=== PATIENT | male | born 1965 | race Caucasian/White ===

== ENCOUNTER → 2016-10-05 | Outpatient (REF) | payer OTHER ==
[~2016-10-05] MED LIST: ARTI99.0 OU; ARTIDRO3 OP; ASPI81TA85 PO; ATOR1TAB21 PO; LISI10TA2 PO; OMEP40CA2 PO; OXYC1TAB23 PO; REST0.05 OU; SERO200T PO; SERT-138 PO; SIMV20TA2 PO; ZOLP12.515 PO
[2016-10-05 20:13] LABS: MEAN CORPUSCULAR HEMOGLOBIN 30.3 pg (27.0-33.0); MEAN CORPUSCULAR HGB CONC 32.4 g/dl (32.0-36.5); MEAN CORPUSCULAR VOLUME 93.5 fl (80.0-96.0); RED CELL DISTRIBUTION WIDTH 13.9 % (11.5-14.5)
[2016-10-05 20:55] LABS: ALBUMIN 4.3 GM/DL (3.2-5.2); ALBUMIN/GLOBULIN RATIO 1.23 (1.00-1.93); ALKALINE PHOSPHATASE 83 U/L (45-117); ALT/SGPT 26 U/L (12-78); ANION GAP 8 MEQ/L (8-16); AST/SGOT 16 U/L (15-37); BILIRUBIN,TOTAL 0.3 MG/DL (0.2-1.0); BLOOD UREA NITROGEN 18 MG/DL (7-18); CALCIUM LEVEL 9.1 MG/DL (8.5-10.1); CARBON DIOXIDE LEVEL 26 MEQ/L (21-32); CHLORIDE LEVEL 108 MEQ/L (98-107); GLOMERULAR FILTRATION RATE > 60.0 (>56); GLUCOSE, FASTING 80 MG/DL (70-105); POTASSIUM SERUM 4.1 MEQ/L (3.5-5.1); SODIUM LEVEL 142 MEQ/L (136-145); TOTAL PROTEIN 7.8 GM/DL (6.4-8.2)
== END ==
LOC: M SFHCLERA 14:23
PROVIDERS: ATTEND Family Medicine
DX: Z01.812 Encounter for preprocedural laboratory examination (principal)

== ENCOUNTER → 2016-10-05 | Outpatient (CLI) | payer OTHER ==
--- NOTE | 2016-10-05 16:16 | REP ---
Chest two views HISTORY: Preop Comparison: None The lungs are clear. The heart is normal in size. The pulmonary vasculature is normal in appearance. The bony structure is intact. IMPRESSION: No acute disease. Signed by Hal Jacques MD 10/05/2016 04:07 P
== END ==
LOC: M LRY 14:24
PROVIDERS: ATTEND Family Medicine
DX: Z01.818 Encounter for other preprocedural examination (principal); Z13.9 Encounter for screening, unspecified

== ENCOUNTER 2016-10-08 10:26 | Day surgery (SDC) | payer OTHER ==
[~2016-10-08] VITALS: Ht 180.3 cm; Wt 108.0 kg
[~2016-10-08 10:26] MED LIST changes: -OXYC1TAB23 PO
[2016-10-08] MEDS ORDERED: MIDAZOLAM INJ 2 MG/2 ML VIAL (J2250) As Ordered ONE (10:33)
[2016-10-08] MEDS ORDERED: PROPOFOL 200 MG/20 ML VIAL As Ordered ONE (10:34)
[2016-10-08] MEDS ORDERED: dexameTHASONE 4 MG/ML 1ML VIAL (J1100) As Ordered ONE (10:34)
[2016-10-08] MEDS ORDERED: ROCURONIUM BROMIDE 50 MG/5 ML VIAL/SYRINGE As Ordered ONE (10:34)
[2016-10-08] MEDS ORDERED: fentaNYL 250 MCG/5 ML INJECTION (J3010) As Ordered ONE (10:34)
[2016-10-08] MEDS ORDERED: LIDOCAINE 2% INJ 100 MG/5 ML SDV (FOR ANES.) As Ordered ONE (10:34)
[2016-10-08] MEDS ORDERED: LR 1,000 ML IV ONE (10:45)
[2016-10-08] MEDS ORDERED: BUPIVACAINE HCL 0.25% 30 ML VIAL As Ordered ONE (11:40)
[2016-10-08] MEDS ORDERED: LIDOCAINE 1% SDV INJ 30 ML VIAL As Ordered ONE (11:40)
[2016-10-08] MEDS ORDERED: PHENYLephrine HCL 500 MCG/5 ML (100MCG/ML) SYRINGE (J2370) As Ordered ONE (12:17)
[2016-10-08] MEDS ORDERED: ePHEDrine SULFATE 25 MG/5 ML(5MG/ML) SYRINGE As Ordered ONE (12:26)
[2016-10-08] MEDS ORDERED: ONDANSETRON 4MG/2ML VIAL (J2405) As Ordered ONE (12:34)
[2016-10-08] MEDS ORDERED: KETOROLAC 60 MG/2 ML VIAL (J1885) As Ordered ONE (12:52)
[2016-10-08] MEDS ORDERED: HYDROmorphone HCL 2 MG/ML 1ML VIAL (J1170) As Ordered ONE (12:58)
[2016-10-08] MEDS ORDERED: GLYCOPYRROLATE INJ 0.2 MG/ML 2 ML VIAL As Ordered ONE (13:02)
[2016-10-08] MEDS ORDERED: OXYC1TAB23 PO (13:06)
--- NOTE | 2016-10-08 13:17 | ROOPDOC ---
[facility] Report Of Operation Report of Operation DATE OF PROCEDURE: 10/08/16 PREPROCEDURE DIAGNOSES: Recurrent epigastric hernia. POSTPROCEDURE DIAGNOSES: Recurrent epigastric hernia PROCEDURE: Laparoscopic epigastric hernia repair SURGEON: Yevgeniy MD CELLULAR EQUIPMENT REPAIRER: Piedad Ahumada NP ANESTHESIA: General anesthesia ESTIMATED BLOOD LOSS: Approximately 10 mL. COMPLICATIONS: None REMARKS: Multiple small defects within about a 5 cm area at the peptic epigastric area containing both preperitoneal fat and initially the epiploic appendage of the transverse colon PROCEDURE NOTE: 51-year-old gentleman with recurrent bulging at the epigastric area complaining of pain at the area with movement, bending. DESCRIPTION OF PROCEDURE: . LAPAROSCOPIC umbilical hernia repair He was given a dose of Ancef 2 g IV preoperatively for antibiotic prophylaxis 1 hour prior to incision. Patient was brought to the operating room, placed supine on the table. Sequential compression device placed for DVT prophylaxis. General endotracheal anesthesia started. The abdomen prepped and draped in usual sterile fashion. After a surgical timeout, we began our surgery Entry into the abdomen done via a left upper quadrant subcostal incision. A Veress needle inserted into the abdomen. Proper placement confirmed with saline drop technique. CO2 insufflation done to a pressure of 15 mmHg. Using the same incision 5 mm Visiport was placed under direct vision of the laparoscope. Diagnostic laparoscopy, a piece of the epiploic appendage from the transverse colon is seen incarcerated into the epigastric hernia. Wide diastases of the upper midline muscles with thinning of the abdominal wall. Previously placed mesh covering the umbilicus intact. The recurrent hernia defect is about 6-7 cm above the edge of the previously placed mesh. After reducing the incarcerated epiploic appendage, some more preperitoneal fat tissue was reduced back into the abdomen. The previously placed on 902 pro mesh is seen covering the defect but displaced from the fascia. A second working port was placed over the left lower quadrant area. The contents of the hernia dissected free. The incarcerated fat and epiploic appendage from the transverse colon was reduced back into the abdomen. The surrounding tissues were freed from the hernia edge, including the falciform ligament. There is 3 separate small hernia defects within about a 5 cm area at the epigastric area in the typical [place] cheese configuration. I chose a 12 cm Parietex Composite round mesh which should adequately cover the area down to the upper portion of the previously placed umbilical mesh. Transabdominal sutures placed at this 3, 6 9 and 12 oclock position at the edge of the mesh. The rough side of the mesh was marked for identification inside the abdomen. This is rolled tightly and placed into the abdomen. This was positioned to center on the hernia defect. Transabdominal suture passer used to retrieve the sutures to position the mesh. Once adequate overlap of the mesh to the hernia defect was ensured. 2 rows of secure strap Vicryl tacks then placed to secure the mesh to the abdominal wall. The outer tacks were at the edge of the mesh and the inner tacks were chest outside of the hernia defect. We inspected the abdomen for hemostasis. Surveyed the abdomen for any injury. Once assured, the abdomen was deflated and all ports removed. Skin incisions closed with 4-0 Monocryl subcuticular fashion. Dermabond used for dressing. Patients promptly awake and extubated and brought to the recovery room in stable condition. All counts of sponges and instruments verified to be correct. YEVGENIY VALADEZ MD Oct 08, 2016 13:17
[2016-10-08] MEDS ORDERED: LR 1,000 ML IV SCH (13:30)
[2016-10-08] MEDS ORDERED: ONDANSETRON 4MG/2ML VIAL (J2405) IV PRN ×2 (13:30)
[2016-10-08] MEDS ORDERED: PERCOCET 5MG/325MG TAB PO PRN ×3 (13:30)
[2016-10-08] MEDS ORDERED: NORCO, ANEXSIA 5/325MG TABLET (HYDROcodone/ACETAMINOPHEN) PO PRN ×2 (13:30)
[2016-10-08] MEDS ORDERED: fentaNYL 100 MCG/2 ML INJECTION (J3010) IV PRN (13:30)
[2016-10-08 15:05] VITALS: BP 113/67
[2016-10-08] MEDS ORDERED: KETOROLAC 30 MG/ML VIAL (J1885) IV PRN (19:00)
== END 2016-10-08 15:30 | disposition home or self-care (01) ==
LOC: M SDC 10:26
PROVIDERS: ATTEND Surgery
DX: K43.6 Other and unspecified ventral hernia with obstruction, without gangrene (principal); I10 Essential (primary) hypertension; K21.9 Gastro-esophageal reflux disease without esophagitis; F43.10 Post-traumatic stress disorder, unspecified; F41.9 Anxiety disorder, unspecified; F32.9 Major depressive disorder, single episode, unspecified; E78.4 Other hyperlipidemia; Z79.899 Other long term (current) drug therapy
CPT/HCPCS: 49653; C1781

== ENCOUNTER 2017-08-05 15:43 | Emergency (ER) | payer OTHER | END 2017-08-05 16:44 | disposition home or self-care (01) | LOC: M ED 15:43 | DX: R58 Hemorrhage, not elsewhere classified (principal); I83.899 Varicose veins of unspecified lower extremity with other complications; F41.9 Anxiety disorder, unspecified; Z79.82 Long term (current) use of aspirin; Z79.899 Other long term (current) drug therapy; Z91.030 Bee allergy status | CPT/HCPCS: 99284 ==

== ENCOUNTER → 2017-08-10 | Outpatient (REF) | payer OTHER ==
[2017-08-10 17:17] LABS: HEMATOCRIT 38.2 % (42.0-52.0); HEMOGLOBIN 12.2 g/dl (13.5-17.5); MEAN CORPUSCULAR HEMOGLOBIN 29.3 pg (27.0-33.0); MEAN CORPUSCULAR HGB CONC 31.9 g/dl (32.0-36.5); MEAN CORPUSCULAR VOLUME 91.6 fl (80.0-96.0); PLATELET COUNT, AUTOMATED 362 10^3/uL (150-450); RED BLOOD COUNT 4.17 10^6/uL (4.30-6.10); WHITE BLOOD COUNT 6.2 10^3/uL (4.0-10.0)
[2017-08-10 18:01] LABS: ALBUMIN/GLOBULIN RATIO 1.14 (1.00-1.93); ALKALINE PHOSPHATASE 73 U/L (45-117); ALT/SGPT 29 U/L (12-78); ANION GAP 9 MEQ/L (8-16); AST/SGOT 19 U/L (7-37); BILIRUBIN,TOTAL 0.4 MG/DL (0.2-1.0); BLOOD UREA NITROGEN 13 MG/DL (7-18); CALCIUM LEVEL 9.4 MG/DL (8.5-10.1); CARBON DIOXIDE LEVEL 26 MEQ/L (21-32); CHLORIDE LEVEL 107 MEQ/L (98-107); CHOLESTEROL LEVEL 191 MG/DL (<200); CHOLESTEROL RISK RATIO 3.673 (<5); CREATININE FOR GFR 0.93 MG/DL (0.70-1.30); GLOMERULAR FILTRATION RATE > 60.0 (>56); GLUCOSE, FASTING 89 MG/DL (70-100); HDL CHOLESTEROL 52 MG/DL (>40); NON-HDL-C 139 MG/DL; POTASSIUM SERUM 3.8 MEQ/L (3.5-5.1); SODIUM LEVEL 142 MEQ/L (136-145); TOTAL PROTEIN 7.5 GM/DL (6.4-8.2); TRIGLYCERIDES LEVEL 170 MG/DL (<150)
== END ==
LOC: M SFHCLERA 12:31
DX: I10 Essential (primary) hypertension (principal); E78.2 Mixed hyperlipidemia

== ENCOUNTER → 2017-09-30 | Outpatient (REF) | payer OTHER | LOC: M SFHCSACK 14:36 | DX: D64.9 Anemia, unspecified (principal) ==

== ENCOUNTER → 2017-10-07 | Outpatient (REF) | payer OTHER ==
[2017-10-07 11:31] LABS: BASO % 0.4 % (0.0-1.0); EOS # 0.3 10^3/uL (0.0-0.50); EOS % 3.5 % (0.0-3.0); HEMATOCRIT 38.1 % (42.0-52.0); HEMOGLOBIN 12.3 g/dl (13.5-17.5); IMMATURE GRANULOCYTE % 0.2 % (0-3.0); LYMPH # 1.6 10^3/uL (1.5-4.5); LYMPH % 19.8 % (24.0-44.0); MEAN CORPUSCULAR HEMOGLOBIN 28.9 pg (27.0-33.0); MEAN CORPUSCULAR HGB CONC 32.3 g/dl (32.0-36.5); MEAN CORPUSCULAR VOLUME 89.4 fl (80.0-96.0); MONO # 0.6 10^3/uL (0.0-0.8); NEUTROPHILS # 5.6 10^3/uL (1.8-7.7); NEUTROPHILS % 69.1 % (36.0-66.0); PLATELET COUNT, AUTOMATED 341 10^3/uL (150-450); RED BLOOD COUNT 4.26 10^6/uL (4.30-6.10); RED CELL DISTRIBUTION WIDTH 14.6 % (11.5-14.5)
[2017-10-07 12:13] LABS: TOTAL 25(OH) VITAMIN D 10.7 NG/ML (30.0-100.0)
[2017-10-07 12:27] LABS: ALBUMIN/GLOBULIN RATIO 1.14 (1.00-1.93); ALKALINE PHOSPHATASE 75 U/L (45-117); ALT/SGPT 33 U/L (12-78); ANION GAP 10 MEQ/L (8-16); AST/SGOT 27 U/L (7-37); BILIRUBIN,TOTAL 0.4 MG/DL (0.2-1.0); BLOOD UREA NITROGEN 24 MG/DL (7-18); CALCIUM LEVEL 9.9 MG/DL (8.5-10.1); CARBON DIOXIDE LEVEL 28 MEQ/L (21-32); CHLORIDE LEVEL 104 MEQ/L (98-107); CHOLESTEROL LEVEL 171 MG/DL (<200); CHOLESTEROL RISK RATIO 3.638 (<5); FERRITIN 27 NG/ML (26-388); FREE T4 0.84 NG/DL (0.76-1.46); GLOMERULAR FILTRATION RATE > 60.0 (>56); GLUCOSE, FASTING 109 MG/DL (70-100); HDL CHOLESTEROL 47 MG/DL (>40); IRON (FE) 52 UG/DL (65-175); LDL CHOLESTEROL 74.2 MG/DL (<100); NON-HDL-C 124 MG/DL; PERCENT SATURATION 10.9 % (19.7-50.0); SODIUM LEVEL 142 MEQ/L (136-145); TOTAL IRON BINDING CAPACITY 476 UG/DL (250-450); TOTAL PROTEIN 7.5 GM/DL (6.4-8.2); TRIGLYCERIDES LEVEL 249 MG/DL (<150)
== END ==
LOC: M SFHCSACK 08:57
DX: D64.9 Anemia, unspecified (principal); E78.2 Mixed hyperlipidemia; Z83.49 Family history of other endocrine, nutritional and metabolic diseases; F41.8 Other specified anxiety disorders

== ENCOUNTER → 2017-10-19 | Outpatient (CLI) | payer OTHER | LOC: M RAD 12:17 | DX: I87.393 Chronic venous hypertension (idiopathic) with other complications of bilateral lower extremity (principal) | CPT/HCPCS: 93970 ==

== ENCOUNTER → 2018-01-02 | Outpatient (REF) | payer OTHER ==
[2018-01-02 14:14] LABS: BASO # 0.1 10^3/uL (0.0-0.2); BASO % 0.9 % (0.0-1.0); EOS # 0.3 10^3/uL (0.0-0.50); HEMATOCRIT 39.8 % (42.0-52.0); HEMOGLOBIN 12.5 g/dl (13.5-17.5); IMMATURE GRANULOCYTE % 0.3 % (0-3.0); LYMPH # 1.5 10^3/uL (1.5-4.5); LYMPH % 20.1 % (24.0-44.0); MEAN CORPUSCULAR HEMOGLOBIN 27.4 pg (27.0-33.0); MEAN CORPUSCULAR HGB CONC 31.4 g/dl (32.0-36.5); MEAN CORPUSCULAR VOLUME 87.3 fl (80.0-96.0); MONO # 0.4 10^3/uL (0.0-0.8); MONO % 4.7 % (0.0-5.0); NEUTROPHILS # 5.2 10^3/uL (1.8-7.7); PLATELET COUNT, AUTOMATED 422 10^3/uL (150-450); RED BLOOD COUNT 4.56 10^6/uL (4.30-6.10); RED CELL DISTRIBUTION WIDTH 14.8 % (11.5-14.5); WHITE BLOOD COUNT 7.5 10^3/uL (4.0-10.0)
[2018-01-02 14:42] LABS: ALBUMIN 4.6 GM/DL (3.2-5.2); ALBUMIN/GLOBULIN RATIO 1.28 (1.00-1.93); ALKALINE PHOSPHATASE 117 U/L (45-117); ALT/SGPT 36 U/L (12-78); ANION GAP 9 MEQ/L (8-16); AST/SGOT 36 U/L (7-37); BILIRUBIN,TOTAL 0.5 MG/DL (0.2-1.0); BLOOD UREA NITROGEN 15 MG/DL (7-18); CALCIUM LEVEL 9.7 MG/DL (8.5-10.1); CARBON DIOXIDE LEVEL 26 MEQ/L (21-32); CHLORIDE LEVEL 102 MEQ/L (98-107); CHOLESTEROL LEVEL 190 MG/DL (<200); CHOLESTEROL RISK RATIO 2.676 (<5); CREATININE FOR GFR 1.37 MG/DL (0.70-1.30); FERRITIN 22 NG/ML (26-388); GLOMERULAR FILTRATION RATE 57.9 (>56); GLUCOSE, FASTING 103 MG/DL (70-100); HDL CHOLESTEROL 71 MG/DL (>40); IRON (FE) 89 UG/DL (65-175); LDL CHOLESTEROL 97 MG/DL (<100); NON-HDL-C 119 MG/DL; PERCENT SATURATION 17.8 % (19.7-50.0); POTASSIUM SERUM 4.6 MEQ/L (3.5-5.1); SODIUM LEVEL 137 MEQ/L (136-145); TOTAL IRON BINDING CAPACITY 500 UG/DL (250-450); TOTAL PROTEIN 8.2 GM/DL (6.4-8.2); TRIGLYCERIDES LEVEL 108 MG/DL (<150)
[2018-01-02 17:56] LABS: ESTIMATED AVERAGE GLUCOSE 111 MG/DL (60-110); HEMOGLOBIN A1c 5.5 %
== END ==
LOC: M SFHCSACK 11:11
DX: E78.2 Mixed hyperlipidemia (principal); D64.9 Anemia, unspecified; R73.09 Other abnormal glucose

== ENCOUNTER → 2018-05-10 | Outpatient (REF) | payer OTHER ==
[~2018-05-10] MED LIST changes: +ARTI1DRO OP; -ARTIDRO3 OP; +OXYC1TAB23 PO
[2018-05-10 14:28] LABS: BASO # 0.1 10^3/uL (0.0-0.2); BASO % 0.8 % (0.0-1.0); EOS # 0.4 10^3/uL (0.0-0.50); EOS % 5.5 % (0.0-3.0); HEMATOCRIT 41.5 % (42.0-52.0); HEMOGLOBIN 13.2 g/dl (13.5-17.5); LYMPH # 1.2 10^3/uL (1.5-4.5); LYMPH % 16.5 % (24.0-44.0); MEAN CORPUSCULAR HEMOGLOBIN 26.9 pg (27.0-33.0); MEAN CORPUSCULAR HGB CONC 31.8 g/dl (32.0-36.5); MEAN CORPUSCULAR VOLUME 84.7 fl (80.0-96.0); MONO # 0.6 10^3/uL (0.0-0.8); MONO % 8.5 % (0.0-5.0); NEUTROPHILS % 68.4 % (36.0-66.0); PLATELET COUNT, AUTOMATED 442 10^3/uL (150-450); WHITE BLOOD COUNT 7.3 10^3/uL (4.0-10.0)
[2018-05-10 14:54] LABS: HEMOGLOBIN A1c 5.9 %
[2018-05-10 15:01] LABS: ALBUMIN 4.5 GM/DL (3.2-5.2); ALT/SGPT 29 U/L (12-78); BILIRUBIN,TOTAL 0.7 MG/DL (0.2-1.0); BLOOD UREA NITROGEN 15 MG/DL (7-18); CALCIUM LEVEL 9.5 MG/DL (8.5-10.1); CARBON DIOXIDE LEVEL 27 MEQ/L (21-32); CHLORIDE LEVEL 105 MEQ/L (98-107); CREATININE FOR GFR 1.14 MG/DL (0.70-1.30); GLOMERULAR FILTRATION RATE > 60.0 (>56); GLUCOSE, FASTING 102 MG/DL (70-100); POTASSIUM SERUM 4.5 MEQ/L (3.5-5.1); SODIUM LEVEL 140 MEQ/L (136-145); TOTAL PROTEIN 8.2 GM/DL (6.4-8.2)
[2018-05-10 15:04] LABS: TOTAL 25(OH) VITAMIN D 59.5 NG/ML (30.0-100.0)
== END ==
LOC: M SFHCSACK 09:18
PROVIDERS: ATTEND Physician Assistant
DX: D64.9 Anemia, unspecified (principal); E78.2 Mixed hyperlipidemia; R73.01 Impaired fasting glucose; E55.9 Vitamin D deficiency, unspecified

== ENCOUNTER → 2018-05-17 | Outpatient (CLI) | payer OTHER ==
--- NOTE | 2018-05-18 01:43 | REP ---
Clinical: Chronic pain. Technique: AP, lateral, bilateral oblique and sunrise views right knee . Findings: Mild/moderate tricompartmental degenerative changes include subchondral sclerosis, joint space narrowing, and subtle early osteophyte formation primarily involving the patellofemoral and medial joint space compartments. No acute fracture or dislocation. No obvious effusion. Impression: Mild/moderate tricompartmental osteoarthritic changes. Electronically Signed by Sonny Black MD 05/18/2018 01:35 A
== END ==
LOC: M WUC 15:14
PROVIDERS: ATTEND Physician Assistant
DX: M71.21 Synovial cyst of popliteal space [Baker], right knee (principal); M17.11 Unilateral primary osteoarthritis, right knee

== ENCOUNTER → 2018-12-01 | Outpatient (CLI) | payer OTHER ==
[~2018-12-01] MED LIST changes: -ARTI99.0 OU; +ARTIDRO2 OU; +LISI10TA15 PO; -LISI10TA2 PO
[2018-12-01 16:53] LABS: ALBUMIN 4.2 GM/DL (3.2-5.2); ALT/SGPT 38 U/L (12-78); BILIRUBIN,TOTAL 0.4 MG/DL (0.2-1.0); BLOOD UREA NITROGEN 19 MG/DL (7-18); CALCIUM LEVEL 9.8 MG/DL (8.5-10.1); CARBON DIOXIDE LEVEL 30 MEQ/L (21-32); CHLORIDE LEVEL 103 MEQ/L (98-107); CHOLESTEROL LEVEL 197 MG/DL (<200); CHOLESTEROL RISK RATIO 3.396 (<5); CREATININE FOR GFR 1.17 MG/DL (0.70-1.30); FERRITIN 14 NG/ML (26-388); GLOMERULAR FILTRATION RATE > 60.0 (>56); GLUCOSE, FASTING 88 MG/DL (70-100); HDL CHOLESTEROL 58 MG/DL (>40); IRON (FE) 116 UG/DL (65-175); LDL CHOLESTEROL 103 MG/DL (<100); NON-HDL-C 139 MG/DL; PERCENT SATURATION 23.3 % (19.7-50.0); POTASSIUM SERUM 3.7 MEQ/L (3.5-5.1); SODIUM LEVEL 140 MEQ/L (136-145); TOTAL IRON BINDING CAPACITY 498 UG/DL (250-450); TOTAL PROTEIN 7.6 GM/DL (6.4-8.2); TRIGLYCERIDES LEVEL 179 MG/DL (<150)
[2018-12-01 16:56] LABS: BASO # 0.1 10^3/uL (0.0-0.2); BASO % 0.7 % (0.0-1.0); EOS # 0.2 10^3/uL (0.0-0.5); EOS % 2.9 % (0.0-3.0); HEMATOCRIT 40.5 % (42.0-52.0); HEMOGLOBIN 12.9 g/dl (13.5-17.5); LYMPH # 2.1 10^3/uL (1.5-5.0); LYMPH % 29.8 % (24.0-44.0); MEAN CORPUSCULAR HEMOGLOBIN 27.2 pg (27.0-33.0); MEAN CORPUSCULAR HGB CONC 31.9 g/dl (32.0-36.5); MEAN CORPUSCULAR VOLUME 85.4 fl (80.0-96.0); MONO # 0.5 10^3/uL (0.0-0.8); MONO % 6.5 % (0.0-5.0); NEUTROPHILS # 4.1 10^3/uL (1.5-8.5); NEUTROPHILS % 59.8 % (36.0-66.0); PLATELET COUNT, AUTOMATED 393 10^3/uL (150-450); RED BLOOD COUNT 4.74 10^6/uL (4.30-6.10); WHITE BLOOD COUNT 6.9 10^3/uL (4.0-10.0)
[2018-12-01 17:01] LABS: TOTAL 25(OH) VITAMIN D 70.5 NG/ML (30.0-100.0)
== END ==
LOC: M WUC 13:55
PROVIDERS: ATTEND Physician Assistant
DX: R73.01 Impaired fasting glucose (principal); D64.9 Anemia, unspecified; E78.2 Mixed hyperlipidemia

== ENCOUNTER → 2019-12-05 | Outpatient (CLI) | payer OTHER ==
[~2019-12-05] MED LIST changes: -ARTIDRO2 OU; -ASPI81TA85 PO; +ASPI81TA86 PO; -OMEP40CA2 PO; +OMEP40CA97 PO; +POLYOPD OU; -SIMV20TA2 PO; +SIMV20TA22 PO; -ZOLP12.515 PO; +ZOLP12.518 PO
[2019-12-05 17:16] LABS: BLOOD UREA NITROGEN 11 MG/DL (7-18); CALCIUM LEVEL 9.1 MG/DL (8.5-10.1); CARBON DIOXIDE LEVEL 27 MEQ/L (21-32); CHLORIDE LEVEL 105 MEQ/L (98-107); CREATININE FOR GFR 0.96 MG/DL (0.70-1.30); GLOMERULAR FILTRATION RATE > 60.0 (>56); GLUCOSE, FASTING 93 MG/DL (70-100); POTASSIUM SERUM 3.6 MEQ/L (3.5-5.1); SODIUM LEVEL 139 MEQ/L (136-145)
== END ==
LOC: M WUC 13:39
PROVIDERS: ATTEND Physician Assistant Surgical
DX: Z01.812 Encounter for preprocedural laboratory examination (principal); M25.562 Pain in left knee

== ENCOUNTER → 2019-12-05 | Outpatient (CLI) | payer OTHER ==
[2019-12-05 16:51] LABS: BASO % 0.8 % (0.0-1.0); EOS # 0.2 10^3/uL (0.0-0.5); EOS % 4.1 % (0.0-3.0); HEMATOCRIT 42.3 % (42.0-52.0); HEMOGLOBIN 13.3 g/dl (13.5-17.5); LYMPH # 1.7 10^3/uL (1.5-5.0); MEAN CORPUSCULAR HEMOGLOBIN 27.5 pg (27.0-33.0); MEAN CORPUSCULAR HGB CONC 31.4 g/dl (32.0-36.5); MEAN CORPUSCULAR VOLUME 87.4 fl (80.0-96.0); MONO # 0.4 10^3/uL (0.0-0.8); MONO % 6.8 % (0.0-5.0); NEUTROPHILS # 2.9 10^3/uL (1.5-8.5); NEUTROPHILS % 55.1 % (36.0-66.0); PLATELET COUNT, AUTOMATED 432 10^3/uL (150-450); RED BLOOD COUNT 4.84 10^6/uL (4.30-6.10); WHITE BLOOD COUNT 5.2 10^3/uL (4.0-10.0)
[2019-12-05 17:27] LABS: ALBUMIN 3.9 GM/DL (3.2-5.2); ALT/SGPT 23 U/L (12-78); BILIRUBIN,TOTAL 0.4 MG/DL (0.2-1.0); BLOOD UREA NITROGEN 10 MG/DL (7-18); CARBON DIOXIDE LEVEL 27 MEQ/L (21-32); CHLORIDE LEVEL 105 MEQ/L (98-107); CHOLESTEROL LEVEL 179 MG/DL (<200); CHOLESTEROL RISK RATIO 3.442 (<5); CREATININE FOR GFR 0.97 MG/DL (0.70-1.30); FERRITIN 12 NG/ML (26-388); FREE T4 1.07 NG/DL (0.76-1.46); GLOMERULAR FILTRATION RATE > 60.0 (>56); GLUCOSE, FASTING 93 MG/DL (70-100); HDL CHOLESTEROL 52 MG/DL (>40); IRON (FE) 76 UG/DL (65-175); LDL CHOLESTEROL 104 MG/DL (<100); NON-HDL-C 127 MG/DL; PERCENT SATURATION 16.3 % (19.7-50.0); POTASSIUM SERUM 3.6 MEQ/L (3.5-5.1); SODIUM LEVEL 138 MEQ/L (136-145); TOTAL IRON BINDING CAPACITY 465 UG/DL (250-450); TOTAL PROTEIN 7.4 GM/DL (6.4-8.2); TRIGLYCERIDES LEVEL 113 MG/DL (<150)
== END ==
LOC: M WUC 13:35
PROVIDERS: ATTEND Physician Assistant
DX: D64.9 Anemia, unspecified (principal); E78.2 Mixed hyperlipidemia; I10 Essential (primary) hypertension; Z13.29 Encounter for screening for other suspected endocrine disorder

== ENCOUNTER → 2019-12-08 | Outpatient (CLI) | payer OTHER | LOC: M LABSMTC 09:01 | PROVIDERS: ATTEND Orthopaedic Surgery | DX: Z01.812 Encounter for preprocedural laboratory examination (principal); Z20.828 Contact with and (suspected) exposure to other viral communicable diseases ==

== ENCOUNTER → 2020-07-04 | Outpatient (CLI) | payer OTHER ==
[~2020-07-04] MED LIST changes: +ISOVUE-300 61% 50ML VIAL As Ordered ONE
--- NOTE | 2020-07-04 10:18 | REP ---
INDICATION: EFFUSION LT KNEE, R/O INTERNAL DERANGEMENT. COMPARISON: None. TECHNIQUE: Axial CT images left knee performed following arthrogram procedure. Sagittal and coronal reconstruction images are performed. FINDINGS: There is extensive complex tear of the anterior and posterior horns of the medial meniscus. The lateral meniscus appears intact. The cruciate ligaments appear intact. There is no full-thickness tear of the collateral ligaments. There is no evidence of full-thickness tear of the extensor mechanism. There is no full-thickness tear of the medial or lateral patellar retinaculum. There is moderate to severe chondromalacia along the weight-bearing surface of the medial femoral condyle and tibial plateau. There is associated subchondral sclerosis and mild spurring. There is relatively mild chondromalacia along the lateral femoral condyle. The osseous structures are intact. There is a Conn's cyst which fills with contrast, having a craniocaudal length of approximately 6 cm and a diameter transversely approximately 2.4 cm. IMPRESSION: Extensive complex tear anterior and posterior horns medial meniscus. No other evidence of significant internal derangement. 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 Conn's cyst. <Electronically signed by Abhilash Yanes > 07/04/20 [id number]
--- NOTE | 2020-07-04 16:18 | REP ---
INDICATION: EFFUSION LT KNEE, R/O INTERNAL DERANGEMENT. COMPARISON: None TECHNIQUE: The procedure was performed by REYNA Marie, under the direct supervision of Dr. Yanes. The benefits and risks of the procedure were explained to the patient, and an informed consent was obtained. Directly prior to the start of the procedure, a formal time-out was completed in the procedure room. The left femoral tibial joint space was localized using fluoroscopic guidance. The skin was prepped and draped in a sterile fashion. Approximately 5 mL of 1% Lidocaine 10 mg/ml was used as a local anesthetic. Using fluoroscopic guidance, a #22 gauge spinal needle was inserted and advanced into the left femoral tibial joint space. Approximately 12 mL of Isovue 300 was injected to verify placement, and postprocedural imaging. The needle was removed and hemostasis was achieved. FINDINGS: The patient tolerated the procedure well and there were no immediate complications. IMPRESSION: 1. Fluoroscopic guided left knee CT arthrogram injection. 0.2 minutes of fluoroscopy time was utilized for this procedure. Some fluoroscopic images are performed with last image hold technology. These images require no additional radiation. <Electronically signed by Akosua Diaz > 07/04/20 [id number] <Electronically signed by Abhilash Yanes > 07/04/20 [id number]
== END ==
LOC: M RADPRO 08:42
PROVIDERS: ATTEND Physician Assistant
DX: S83.242A Other tear of medial meniscus, current injury, left knee, initial encounter (principal); M22.42 Chondromalacia patellae, left knee; M25.462 Effusion, left knee
CPT/HCPCS: 27369; 73701; 77002; Q9967

== ENCOUNTER → 2020-09-05 | Outpatient (CLI) | payer OTHER ==
[~2020-09-05] MED LIST changes: -ISOVUE-300 61% 50ML VIAL As Ordered ONE; -LISI10TA15 PO; +LISI10TA24 PO; +OMEP40CA4 PO; -OMEP40CA97 PO
[2020-09-05 17:25] LABS: BASO # 0.1 10^3/uL (0.0-0.2); BASO % 0.6 % (0.0-1.0); EOS # 0.2 10^3/uL (0.0-0.5); EOS % 2.4 % (0.0-3.0); HEMOGLOBIN 12.8 g/dl (13.5-17.5); LYMPH % 24.7 % (24.0-44.0); MEAN CORPUSCULAR HEMOGLOBIN 28.8 pg (27.0-33.0); MEAN CORPUSCULAR VOLUME 90.1 fl (80.0-96.0); MONO # 0.5 10^3/uL (0.0-0.8); MONO % 5.4 % (2.0-8.0); NEUTROPHILS # 5.5 10^3/uL (1.5-8.5); NEUTROPHILS % 66.3 % (36.0-66.0); PLATELET COUNT, AUTOMATED 431 10^3/uL (150-450); RED BLOOD COUNT 4.44 10^6/uL (4.30-6.10); WHITE BLOOD COUNT 8.3 10^3/uL (4.0-10.0)
[2020-09-05 18:06] LABS: ERYTHROCYTE SEDIMENTATION RATE 14 mm/hr (0-20)
== END ==
LOC: M PLALAB 16:01
PROVIDERS: ATTEND Physician Assistant
DX: Z47.89 Encounter for other orthopedic aftercare (principal); Z79.82 Long term (current) use of aspirin; Z79.899 Other long term (current) drug therapy

== ENCOUNTER → 2021-05-01 | Outpatient (CLI) | payer OTHER ==
[2021-05-01 15:38] LABS: HEMATOCRIT 38.5 % (42.0-52.0); HEMOGLOBIN 12.3 g/dl (13.5-17.5); MEAN CORPUSCULAR HEMOGLOBIN 28.9 pg (27.0-33.0); MEAN CORPUSCULAR HGB CONC 31.9 g/dl (32.0-36.5); MEAN CORPUSCULAR VOLUME 90.6 fl (80.0-96.0); PLATELET COUNT, AUTOMATED 375 10^3/uL (150-450); RED BLOOD COUNT 4.25 10^6/uL (4.30-6.10); WHITE BLOOD COUNT 5.8 10^3/uL (4.0-10.0)
[2021-05-01 16:16] LABS: MALB URINE SIEMENS 13.8 MG/L; MAU/CREAT RATIO 9.3 MCG/MG (0.0-30.0)
[2021-05-01 16:18] LABS: BLOOD UREA NITROGEN 27 MG/DL (7-18); GLUCOSE, FASTING 99 MG/DL (70-100)
[2021-05-01 16:19] LABS: ALBUMIN 4.3 GM/DL (3.2-5.2); ALT/SGPT 28 U/L (12-78); BILIRUBIN,TOTAL 0.5 MG/DL (0.2-1.0); CALCIUM LEVEL 10.2 MG/DL (8.5-10.1); CARBON DIOXIDE LEVEL 25 MEQ/L (21-32); CHLORIDE LEVEL 111 MEQ/L (98-107); CHOLESTEROL LEVEL 183 MG/DL (<200); CHOLESTEROL RISK RATIO 2.577 (<5); FREE T4 1.01 NG/DL (0.76-1.46); GLOMERULAR FILTRATION RATE > 60.0 (>56); HDL CHOLESTEROL 71 MG/DL (>40); LDL CHOLESTEROL 97 MG/DL (<100); NON-HDL-C 112 MG/DL; POTASSIUM SERUM 4.4 MEQ/L (3.5-5.1); SODIUM LEVEL 142 MEQ/L (136-145); TOTAL PROTEIN 7.6 GM/DL (6.4-8.2); TRIGLYCERIDES LEVEL 77 MG/DL (<150)
[2021-05-01 17:20] LABS: HEMOGLOBIN A1c 5.4 %
== END ==
LOC: M PLALAB 12:50
PROVIDERS: ATTEND Physician Assistant
DX: G47.00 Insomnia, unspecified (principal); K21.9 Gastro-esophageal reflux disease without esophagitis; E78.2 Mixed hyperlipidemia; I10 Essential (primary) hypertension; Z13.1 Encounter for screening for diabetes mellitus

== ENCOUNTER → 2021-06-10 | Outpatient (CLI) | payer OTHER | LOC: M PLAIMG 11:33 | PROVIDERS: ATTEND Physician Assistant | DX: M75.32 Calcific tendinitis of left shoulder (principal); M54.12 Radiculopathy, cervical region; E55.9 Vitamin D deficiency, unspecified ==

== ENCOUNTER → 2021-06-20 | Outpatient (CLI) | payer OTHER ==
[~2021-06-20] MED LIST changes: +ACET160L16 PO; +ACET160T22 PO; +ASPI81CH33 PO; +D-10TAB3 PO; +MIRT1TAB16 PO; +ZOLO100T PO
== END ==
LOC: M LABSMTC 10:47
PROVIDERS: ATTEND Anesthesiology
DX: Z01.812 Encounter for preprocedural laboratory examination (principal); Z20.822 Contact with and (suspected) exposure to COVID-19

== ENCOUNTER → 2021-10-20 | Outpatient (CLI) | payer OTHER | LOC: M SOG 09:29 | PROVIDERS: ATTEND Physician Assistant | DX: G56.03 Carpal tunnel syndrome, bilateral upper limbs (principal) ==

== ENCOUNTER → 2021-12-24 | Outpatient (CLI) | payer OTHER | LOC: M SOG 08:05 | PROVIDERS: ATTEND Orthopaedic Surgery Adult Reconstructive Orthopaedic Surgery | DX: M17.0 Bilateral primary osteoarthritis of knee (principal) ==

== ENCOUNTER → 2022-04-29 | Outpatient (REF) | payer OTHER ==
[2022-04-29 13:50] LABS: BASO % 0.7 % (0.0-1.0); EOS # 0.1 10^3/uL (0.0-0.5); EOS % 1.7 % (0.0-3.0); HEMATOCRIT 39.8 % (42.0-52.0); HEMOGLOBIN 12.8 g/dl (13.5-17.5); LYMPH # 1.4 10^3/uL (1.5-5.0); LYMPH % 23.5 % (24.0-44.0); MEAN CORPUSCULAR HEMOGLOBIN 30.9 pg (27.0-33.0); MEAN CORPUSCULAR HGB CONC 32.2 g/dl (32.0-36.5); MEAN CORPUSCULAR VOLUME 96.1 fl (80.0-96.0); MONO # 0.4 10^3/uL (0.0-0.8); MONO % 7.1 % (2.0-8.0); NEUTROPHILS # 3.8 10^3/uL (1.5-8.5); NEUTROPHILS % 66.5 % (36.0-66.0); PLATELET COUNT, AUTOMATED 354 10^3/uL (150-450); RED BLOOD COUNT 4.14 10^6/uL (4.30-6.10); WHITE BLOOD COUNT 5.8 10^3/uL (4.0-10.0)
[2022-04-29 14:13] LABS: ALBUMIN 4.4 G/DL (3.2-5.2); ALKALINE PHOSPHATASE 70 U/L (46-116); ALT/SGPT 21 U/L (7.0-40); AST/SGOT 20 U/L (<34); BILIRUBIN,TOTAL 0.5 MG/DL (0.3-1.2); BLOOD UREA NITROGEN 25 MG/DL (9-23); CALCIUM LEVEL 10.2 MG/DL (8.5-10.1); CARBON DIOXIDE LEVEL 28 MMOL/L (20-31); CHLORIDE LEVEL 103 MMOL/L (98-107); CHOLESTEROL LEVEL 185 MG/DL (<200); CHOLESTEROL RISK RATIO 2.95 (<5); CREATININE FOR GFR 0.83 MG/DL (0.70-1.30); GLOMERULAR FILTRATION RATE > 60.0 (>56); GLUCOSE, FASTING 96 MG/DL (60-100); HDL CHOLESTEROL 62.6 MG/DL (>40); LDL CHOLESTEROL 103.4 MG/DL (<100); NON-HDL-C 122 MG/DL; SODIUM LEVEL 139 MMOL/L (136-145); TOTAL PROTEIN 7.4 G/DL (5.7-8.2); TRIGLYCERIDES LEVEL 95 MG/DL (<150)
[2022-04-29 14:15] LABS: HEMOGLOBIN A1c 5.6 % (4.0-6.0); TOTAL 25(OH) VITAMIN D 52.2 NG/ML (20.0-100.0)
== END ==
LOC: M SFHCADAM 10:58
PROVIDERS: ATTEND Physician Assistant
DX: E55.9 Vitamin D deficiency, unspecified (principal); E78.2 Mixed hyperlipidemia; I10 Essential (primary) hypertension; Z12.5 Encounter for screening for malignant neoplasm of prostate; Z68.33 Body mass index [BMI] 33.0-33.9, adult

== ENCOUNTER → 2022-07-07 | Outpatient (CLI) | payer OTHER ==
[~2022-07-07] MED LIST changes: +ARTIDRO4 OU; -POLYOPD OU
== END ==
LOC: M ADAMS 14:24
PROVIDERS: ATTEND Physician Assistant
DX: S40.012A Contusion of left shoulder, initial encounter (principal); X58.XXXA Exposure to other specified factors, initial encounter; Y92.9 Unspecified place or not applicable

== ENCOUNTER → 2022-08-06 | Outpatient (CLI) | payer OTHER | LOC: M RAD 14:08 | PROVIDERS: ATTEND Physician Assistant | DX: S40.012D Contusion of left shoulder, subsequent encounter (principal); W18.30XD Fall on same level, unspecified, subsequent encounter ==

== ENCOUNTER → 2023-01-24 | Outpatient (REF) | payer OTHER ==
[2023-01-24 14:23] LABS: BASO % 0.7 % (0.0-1.0); EOS # 0.1 10^3/uL (0.0-0.5); EOS % 1.9 % (0.0-3.0); HEMATOCRIT 40.7 % (42.0-52.0); HEMOGLOBIN 13.7 g/dl (13.5-17.5); LYMPH # 1.2 10^3/uL (1.5-5.0); LYMPH % 20.3 % (24.0-44.0); MEAN CORPUSCULAR HEMOGLOBIN 32.8 pg (27.0-33.0); MEAN CORPUSCULAR HGB CONC 33.7 g/dl (32.0-36.5); MEAN CORPUSCULAR VOLUME 97.4 fl (80.0-96.0); MONO # 0.4 10^3/uL (0.0-0.8); MONO % 6.5 % (2.0-8.0); NEUTROPHILS # 4.1 10^3/uL (1.5-8.5); NEUTROPHILS % 70.3 % (36.0-66.0); PLATELET COUNT, AUTOMATED 311 10^3/uL (150-450); RED BLOOD COUNT 4.18 10^6/uL (4.30-6.10); WHITE BLOOD COUNT 5.9 10^3/uL (4.0-10.0)
[2023-01-24 14:33] LABS: ERYTHROCYTE SEDIMENTATION RATE 52 mm/hr (0-20)
[2023-01-24 14:36] LABS: ALKALINE PHOSPHATASE 61 U/L (46-116); ALT/SGPT 18 U/L (7.0-40); AST/SGOT 16 U/L (<34); BILIRUBIN,TOTAL 0.6 MG/DL (0.3-1.2); BLOOD UREA NITROGEN 20 MG/DL (9-23); CALCIUM LEVEL 9.9 MG/DL (8.5-10.1); CARBON DIOXIDE LEVEL 30 MMOL/L (20-31); CHLORIDE LEVEL 103 MMOL/L (98-107); CHOLESTEROL LEVEL 221 MG/DL (<200); CHOLESTEROL RISK RATIO 3.83 (<5); CREATININE FOR GFR 0.64 MG/DL (0.70-1.30); FREE T4 1.07 NG/DL (0.89-1.76); GLOMERULAR FILTRATION RATE > 60.0 (>56); GLUCOSE, FASTING 99 MG/DL (60-100); HDL CHOLESTEROL 57.6 MG/DL (>40); LDL CHOLESTEROL 139.2 MG/DL (<100); NON-HDL-C 163.4 MG/DL; POTASSIUM SERUM 3.5 MMOL/L (3.5-5.1); SODIUM LEVEL 140 MMOL/L (136-145); THYROID STIMULATING HORMONE 1.521 uIU/ML (0.55-4.78); TOTAL PROTEIN 6.9 G/DL (5.7-8.2); TRIGLYCERIDES LEVEL 121 MG/DL (<150)
[2023-01-24 14:38] LABS: HEMOGLOBIN A1c 4.9 % (4.0-6.0)
== END ==
LOC: M SFHCADAM 12:13
PROVIDERS: ATTEND Physician Assistant
DX: I10 Essential (primary) hypertension (principal); F41.8 Other specified anxiety disorders; Z68.33 Body mass index [BMI] 33.0-33.9, adult; E78.2 Mixed hyperlipidemia; R51.9 Headache, unspecified

== ENCOUNTER → 2023-04-04 | Outpatient (CLI) | payer OTHER ==
[2023-04-04 16:00] LABS: BASO % 0.7 % (0.0-1.0); EOS % 0.5 % (0.0-3.0); HEMATOCRIT 41.5 % (42.0-52.0); LYMPH # 1.5 10^3/uL (1.5-5.0); LYMPH % 25.5 % (24.0-44.0); MEAN CORPUSCULAR HEMOGLOBIN 32.8 pg (27.0-33.0); MEAN CORPUSCULAR HGB CONC 33.7 g/dl (32.0-36.5); MEAN CORPUSCULAR VOLUME 97.2 fl (80.0-96.0); MONO # 0.3 10^3/uL (0.0-0.8); MONO % 4.2 % (2.0-8.0); NEUTROPHILS # 4.1 10^3/uL (1.5-8.5); NEUTROPHILS % 68.8 % (36.0-66.0); PLATELET COUNT, AUTOMATED 464 10^3/uL (150-450); RED BLOOD COUNT 4.27 10^6/uL (4.30-6.10); WHITE BLOOD COUNT 5.9 10^3/uL (4.0-10.0)
[2023-04-04 16:11] LABS: INR 1.2; PROTHROMBIN TIME 14.8 SECONDS (12.5-14.5)
[2023-04-04 16:20] LABS: C REACTIVE PROTEIN QUANTITATIV < 0.40 MG/DL (<1.0)
[2023-04-04 16:24] LABS: TOTAL 25(OH) VITAMIN D 48.9 NG/ML (20.0-100.0)
[2023-04-04 16:29] LABS: HEMOGLOBIN A1c 5.2 % (4.0-6.0)
[2023-04-04 16:41] LABS: ALBUMIN 4.3 G/DL (3.2-5.2); ALKALINE PHOSPHATASE 70 U/L (46-116); ALT/SGPT 12 U/L (7.0-40); AST/SGOT 12 U/L (<34); BILIRUBIN,TOTAL 0.5 MG/DL (0.3-1.2); BLOOD UREA NITROGEN 15 MG/DL (9-23); CARBON DIOXIDE LEVEL 26 MMOL/L (20-31); CHLORIDE LEVEL 104 MMOL/L (98-107); CREATININE FOR GFR 0.84 MG/DL (0.70-1.30); GLOMERULAR FILTRATION RATE > 60.0 (>56); GLUCOSE, FASTING 94 MG/DL (60-100); POTASSIUM SERUM 3.3 MMOL/L (3.5-5.1); SODIUM LEVEL 137 MMOL/L (136-145); TOTAL PROTEIN 7.2 G/DL (5.7-8.2)
== END ==
LOC: M PLALAB 13:27
PROVIDERS: ATTEND Orthopaedic Surgery
DX: M17.12 Unilateral primary osteoarthritis, left knee (principal)

== ENCOUNTER → 2023-04-04 | Outpatient (CLI) | payer OTHER | LOC: M SOG 07:55 | PROVIDERS: ATTEND Orthopaedic Surgery | DX: M25.562 Pain in left knee (principal); M17.12 Unilateral primary osteoarthritis, left knee ==

== ENCOUNTER → 2023-04-08 | Outpatient (CLI) | payer OTHER | LOC: M PLAIMG 10:20 | PROVIDERS: ATTEND Physician Assistant | DX: M19.031 Primary osteoarthritis, right wrist (principal) ==

== ENCOUNTER → 2023-06-22 | Outpatient (CLI) | payer OTHER | LOC: M SOG 13:20 | PROVIDERS: ATTEND Orthopaedic Surgery | DX: M17.0 Bilateral primary osteoarthritis of knee (principal) ==

== ENCOUNTER → 2023-09-05 | Outpatient (REF) | payer OTHER ==
[~2023-09-05] MED LIST changes: -ZOLP12.518 PO; +ZOLP12.535 PO
== END ==
LOC: M SFHCADAM 12:43
PROVIDERS: ATTEND Physician Assistant
DX: E78.2 Mixed hyperlipidemia (principal); I10 Essential (primary) hypertension; F43.10 Post-traumatic stress disorder, unspecified; F41.8 Other specified anxiety disorders; Z86.010 Personal history of colon polyps; F51.01 Primary insomnia; M17.12 Unilateral primary osteoarthritis, left knee

== ENCOUNTER → 2023-09-28 | Outpatient (REF) | payer OTHER ==
[2023-09-28 17:18] LABS: BASO % 0.8 % (0.0-1.0); EOS # 0.2 10^3/uL (0.0-0.5); EOS % 3.4 % (0.0-3.0); HEMATOCRIT 33.9 % (42.0-52.0); LYMPH # 1.2 10^3/uL (1.5-5.0); MEAN CORPUSCULAR HEMOGLOBIN 31.3 pg (27.0-33.0); MEAN CORPUSCULAR HGB CONC 32.4 g/dl (32.0-36.5); MEAN CORPUSCULAR VOLUME 96.3 fl (80.0-96.0); MONO # 0.3 10^3/uL (0.0-0.8); MONO % 5.5 % (2.0-8.0); NEUTROPHILS # 3.3 10^3/uL (1.5-8.5); NEUTROPHILS % 66.1 % (36.0-66.0); PLATELET COUNT, AUTOMATED 237 10^3/uL (150-450); RED BLOOD COUNT 3.52 10^6/uL (4.30-6.10); WHITE BLOOD COUNT 5.1 10^3/uL (4.0-10.0)
[2023-09-28 17:40] LABS: HEMOGLOBIN A1c 5.2 % (4.0-6.0)
[2023-09-28 17:42] LABS: ALBUMIN 3.6 G/DL (3.2-5.2); ALKALINE PHOSPHATASE 49 U/L (46-116); ALT/SGPT 16 U/L (7.0-40); AST/SGOT 18 U/L (<34); BILIRUBIN,TOTAL 0.3 MG/DL (0.3-1.2); BLOOD UREA NITROGEN 17 MG/DL (9-23); CALCIUM LEVEL 7.8 MG/DL (8.5-10.1); CARBON DIOXIDE LEVEL 28 MMOL/L (20-31); CHLORIDE LEVEL 109 MMOL/L (98-107); CHOLESTEROL LEVEL 156 MG/DL (<200); CHOLESTEROL RISK RATIO 3.61 (<5); CREATININE FOR GFR 0.76 MG/DL (0.70-1.30); GLOMERULAR FILTRATION RATE > 60.0 (>56); GLUCOSE, FASTING 88 MG/DL (60-100); HDL CHOLESTEROL 43.2 MG/DL (>40); NON-HDL-C 112.8 MG/DL; POTASSIUM SERUM 3.7 MMOL/L (3.5-5.1); SODIUM LEVEL 145 MMOL/L (136-145); TOTAL PROTEIN 5.8 G/DL (5.7-8.2); TRIGLYCERIDES LEVEL 109 MG/DL (<150)
[2023-09-28 17:44] LABS: THYROID STIMULATING HORMONE 1.881 uIU/ML (0.55-4.78)
== END ==
LOC: M SFHCADAM 11:39
PROVIDERS: ATTEND Physician Assistant
DX: E78.2 Mixed hyperlipidemia (principal); I10 Essential (primary) hypertension; F43.10 Post-traumatic stress disorder, unspecified; F41.8 Other specified anxiety disorders; Z86.010 Personal history of colon polyps; F51.01 Primary insomnia; M17.12 Unilateral primary osteoarthritis, left knee

== ENCOUNTER 2023-10-20 08:42 | Day surgery (SDC) | payer OTHER ==
[~2023-10-20] VITALS: Ht 177.8 cm; Wt 89.4 kg
[~2023-10-20 08:42] MED LIST changes: +AMBI10TA PO; +CALC500T31 PO; +DOXY20TA6 PO; +HYDR12.55 PO; +LISI20TA33 PO; +NAPR-885 PO; +TIZA10TA PO; +propofoL 200 MG/20 ML VIAL As Ordered ONE
[2023-10-20] MEDS: NS 1,000 ML IV ONE (09:05)
[2023-10-20 10:33] VITALS: TEMP 97; O2SAT 99
[2023-10-20 10:40] VITALS: BP 158/79
== END 2023-10-20 10:52 | disposition home or self-care (01) ==
LOC: M OPP 08:42
PROVIDERS: ATTEND Surgery
DX: Z12.11 Encounter for screening for malignant neoplasm of colon (principal); Z86.010 Personal history of colon polyps; K62.89 Other specified diseases of anus and rectum; K64.9 Unspecified hemorrhoids; K64.4 Residual hemorrhoidal skin tags; K57.30 Diverticulosis of large intestine without perforation or abscess without bleeding; Z79.02 Long term (current) use of antithrombotics/antiplatelets; Z79.1 Long term (current) use of non-steroidal anti-inflammatories (NSAID); Z79.82 Long term (current) use of aspirin; Z79.899 Other long term (current) drug therapy; Z91.030 Bee allergy status

== ENCOUNTER → 2023-11-17 | Outpatient (CLI) | payer OTHER ==
[~2023-11-17] MED LIST changes: -propofoL 200 MG/20 ML VIAL As Ordered ONE
[2023-11-17 16:01] LABS: HEMATOCRIT 39.9 % (42.0-52.0); HEMOGLOBIN 13.2 g/dl (13.5-17.5); MEAN CORPUSCULAR HEMOGLOBIN 31.3 pg (27.0-33.0); MEAN CORPUSCULAR HGB CONC 33.1 g/dl (32.0-36.5); MEAN CORPUSCULAR VOLUME 94.5 fl (80.0-96.0); PLATELET COUNT, AUTOMATED 325 10^3/uL (150-450); RED BLOOD COUNT 4.22 10^6/uL (4.30-6.10); WHITE BLOOD COUNT 6.1 10^3/uL (4.0-10.0)
[2023-11-17 16:20] LABS: BLOOD UREA NITROGEN 32 MG/DL (9-23); CALCIUM LEVEL 10.2 MG/DL (8.5-10.1); CARBON DIOXIDE LEVEL 26 MMOL/L (20-31); CHLORIDE LEVEL 104 MMOL/L (98-107); CREATININE FOR GFR 1.25 MG/DL (0.70-1.30); GLOMERULAR FILTRATION RATE > 60.0 (>56); GLUCOSE, FASTING 90 MG/DL (60-100); MAGNESIUM LEVEL 1.3 MG/DL (1.8-2.4); PSA SCREENING 0.84 NG/ML (< 4.00); PTH INTACT 11.7 PG/ML (18.5-88.0); SODIUM LEVEL 137 MMOL/L (136-145); TOTAL 25(OH) VITAMIN D 43.3 NG/ML (20.0-100.0)
== END ==
LOC: M PLALAB 12:17
PROVIDERS: ATTEND Physician Assistant
DX: E83.51 Hypocalcemia (principal); Z12.5 Encounter for screening for malignant neoplasm of prostate

== ENCOUNTER → 2024-01-17 | Outpatient (CLI) | payer OTHER ==
[~2024-01-17] MED LIST changes: -CALC500T31 PO; +OYST500T16 PO
[2024-01-17 15:23] LABS: BLOOD UREA NITROGEN 19 MG/DL (9-23); CALCIUM LEVEL 9.7 MG/DL (8.5-10.1); CARBON DIOXIDE LEVEL 30 MMOL/L (20-31); CHLORIDE LEVEL 110 MMOL/L (98-107); CREATININE FOR GFR 0.84 MG/DL (0.70-1.30); GLOMERULAR FILTRATION RATE > 60.0 (>56); GLUCOSE, FASTING 85 MG/DL (60-100); POTASSIUM SERUM 3.7 MMOL/L (3.5-5.1); SODIUM LEVEL 144 MMOL/L (136-145)
== END ==
LOC: M PLALAB 11:28
PROVIDERS: ATTEND Physician Assistant
DX: E83.42 Hypomagnesemia (principal); E83.52 Hypercalcemia

== ENCOUNTER 2024-03-23 06:50 | Day surgery (SDC) | payer OTHER ==
[~2024-03-23] VITALS: Ht 177.8 cm; Wt 92.1 kg
[~2024-03-23 06:50] MED LIST changes: +ATOR40TA75 PO; +FLUTISP
[2024-03-23] MEDS: SODIUM BICARBONATE 8.4% INJ 50MEQ 50ML VIAL XX ONE (07:49)
[2024-03-23] MEDS: LIDOCAINE W/EPINEPHRINE 1% 20ML VIAL XX ONE (07:49)
[2024-03-23] MEDS: BACITRACIN OINTMENT 30GM TUBE As Ordered ONE (09:22)
[2024-03-23 09:34] VITALS: BP 148/82; TEMP 98.6; O2SAT 96
[2024-03-23] MEDS ORDERED: NAPR-885 PO (09:36)
== END 2024-03-23 09:55 | disposition home or self-care (01) ==
LOC: M SDC 06:50
PROVIDERS: ATTEND Orthopaedic Surgery Hand Surgery
DX: G56.01 Carpal tunnel syndrome, right upper limb (principal)

== ENCOUNTER → 2024-05-02 | Outpatient (CLI) | payer OTHER | LOC: M SOG 07:49 | PROVIDERS: ATTEND Physician Assistant | DX: M25.532 Pain in left wrist (principal); S63.511A Sprain of carpal joint of right wrist, initial encounter; Y93.9 Activity, unspecified; Y92.29 Other specified public building as the place of occurrence of the external cause ==

== ENCOUNTER → 2024-05-17 | Outpatient (REF) | payer MEDICAID, OTHER ==
[2024-05-17 18:32] LABS: BASO % 0.7 % (0.0-1.0); EOS # 0.2 10^3/uL (0.0-0.5); EOS % 3.4 % (0.0-3.0); HEMATOCRIT 35.7 % (42.0-52.0); HEMOGLOBIN 11.6 g/dl (13.5-17.5); LYMPH # 1.2 10^3/uL (1.5-5.0); LYMPH % 23.1 % (24.0-44.0); MEAN CORPUSCULAR HEMOGLOBIN 30.1 pg (27.0-33.0); MEAN CORPUSCULAR HGB CONC 32.5 g/dl (32.0-36.5); MEAN CORPUSCULAR VOLUME 92.7 fl (80.0-96.0); MONO # 0.3 10^3/uL (0.0-0.8); MONO % 6.3 % (2.0-8.0); NEUTROPHILS # 3.6 10^3/uL (1.5-8.5); NEUTROPHILS % 66.3 % (36.0-66.0); PLATELET COUNT, AUTOMATED 331 10^3/uL (150-450); RED BLOOD COUNT 3.85 10^6/uL (4.30-6.10); WHITE BLOOD COUNT 5.4 10^3/uL (4.0-10.0)
[2024-05-17 18:38] LABS: ALBUMIN 3.8 G/DL (3.2-5.2); ALKALINE PHOSPHATASE 66 U/L (40-129); ALT/SGPT 19 U/L (7.0-40); AST/SGOT 24 U/L (<34); BILIRUBIN,TOTAL 0.3 MG/DL (0.3-1.2); BLOOD UREA NITROGEN 17 MG/DL (9-23); CALCIUM LEVEL 9.2 MG/DL (8.5-10.1); CARBON DIOXIDE LEVEL 28 MMOL/L (20-31); CHLORIDE LEVEL 109 MMOL/L (98-107); CREATININE FOR GFR 0.85 MG/DL (0.70-1.30); FREE T4 1.18 NG/DL (0.89-1.76); GLOMERULAR FILTRATION RATE > 60.0 (>56); GLUCOSE, FASTING 75 MG/DL (60-100); IRON (FE) 72 UG/DL (65-175); MAGNESIUM LEVEL 1.7 MG/DL (1.8-2.4); POTASSIUM SERUM 3.8 MMOL/L (3.5-5.1); PTH INTACT 22.6 PG/ML (18.5-88.0); SODIUM LEVEL 144 MMOL/L (136-145); THYROID STIMULATING HORMONE 2.074 uIU/ML (0.55-4.78); TOTAL IRON BINDING CAPACITY 399 UG/DL (250-425); TOTAL PROTEIN 6.5 G/DL (5.7-8.2)
[2024-05-17 18:39] LABS: FERRITIN 14.8 NG/ML (10.5-307.3); TOTAL 25(OH) VITAMIN D 40.8 NG/ML (20.0-100.0)
[2024-05-17 18:40] LABS: VITAMIN B12 LEVEL 388 PG/ML (211-911)
[2024-05-17 18:47] LABS: FOLATE 12.9 NG/ML (>5.4)
== END ==
LOC: M SFHCADAM 14:30
PROVIDERS: ATTEND Physician Assistant
DX: Z00.00 Encounter for general adult medical examination without abnormal findings (principal); F43.10 Post-traumatic stress disorder, unspecified; G47.00 Insomnia, unspecified; F41.8 Other specified anxiety disorders; I10 Essential (primary) hypertension; Z86.39 Personal history of other endocrine, nutritional and metabolic disease; E83.52 Hypercalcemia

== ENCOUNTER → 2024-05-24 | Outpatient (CLI) | payer OTHER | LOC: M RAD 11:06 | PROVIDERS: ATTEND Physician Assistant | DX: R22.31 Localized swelling, mass and lump, right upper limb (principal) ==

== ENCOUNTER 2024-09-17 06:06 | Day surgery (SDC) | payer OTHER ==
[~2024-09-17] VITALS: Ht 177.8 cm; Wt 99.4 kg
[~2024-09-17 06:06] MED LIST changes: -AMBI10TA PO; +MELO15TA28 PO; +QUET50TA4 PO; +ZOLP-533 PO
[2024-09-17] MEDS ORDERED: LR 1,000 ML IV SCH ×2 (06:35→08:20)
[2024-09-17] MEDS ORDERED: ARTIDRO OP (06:38)
[2024-09-17] MEDS ORDERED: LIDOCAINE 2% 100 MG/5 ML SDV (FOR ANES.) As Ordered ONE (06:56)
[2024-09-17] MEDS ORDERED: dexAMETHasone 4 MG/ML 1 ML VIAL As Ordered ONE (06:56)
[2024-09-17] MEDS ORDERED: ACETAMINOPHEN 1000MG/100ML IV BAG As Ordered ONE (07:00)
[2024-09-17] MEDS ORDERED: MIDAZOLAM INJ 2 MG/2 ML VIAL As Ordered ONE (07:01)
[2024-09-17] MEDS ORDERED: ONDANSETRON 4MG 2ML VIAL As Ordered ONE (07:02)
[2024-09-17] MEDS: ceFAZolin SOD 2 GM IV ONCE IV ONE (07:28)
[2024-09-17] MEDS: POLYSPORIN TOPICAL OINTMENT 15GM As Ordered ONE (07:54)
[2024-09-17] MEDS ORDERED: KETOROLAC 30 MG/ML 1 ML VIAL As Ordered ONE (08:13)
[2024-09-17] MEDS ORDERED: HYDROMORPHONE HCL 0.5 MG/0.5 ML SYRINGE IV PRN (08:20)
[2024-09-17] MEDS ORDERED: ONDANSETRON 4MG 2ML VIAL IV PRN (08:20)
[2024-09-17 09:05] VITALS: BP 173/80; TEMP 97.3; O2SAT 98
== END 2024-09-17 09:32 | disposition home or self-care (01) ==
LOC: M SDC 06:06
PROVIDERS: ATTEND Orthopaedic Surgery Hand Surgery
DX: M67.441 Ganglion, right hand (principal); I10 Essential (primary) hypertension; E78.00 Pure hypercholesterolemia, unspecified; K21.9 Gastro-esophageal reflux disease without esophagitis; F41.9 Anxiety disorder, unspecified; F32.A Depression, unspecified; Z79.899 Other long term (current) drug therapy; Z79.82 Long term (current) use of aspirin; Z79.1 Long term (current) use of non-steroidal anti-inflammatories (NSAID); Z91.030 Bee allergy status
CPT/HCPCS: 26160; 88108; 88305; 88313; J0131; J0665; J0690; J1100; J1885; J2405; J3010

== ENCOUNTER → 2024-10-02 | Outpatient (CLI) | payer OTHER ==
[~2024-10-02] MED LIST changes: +ARTIDRO OP
== END ==
LOC: M SOG 06:59
PROVIDERS: ATTEND Orthopaedic Surgery
DX: M17.12 Unilateral primary osteoarthritis, left knee (principal)